=== PATIENT | male | born 1985 | race Caucasian/White ===

== ENCOUNTER → 2023-06-22 15:12 | Outpatient (CLI) | payer OTHER, SELFPAY ==
--- NOTE | 2023-06-22 15:15 | DI.RAD.S_ITS ---
PROCEDURE: XR HAND LT MIN 3V INDICATIONS: left hand pain, tender over metacarpals 3-4 TECHNIQUE: 3 views of the hand(s) acquired. COMPARISON: None. FINDINGS: Bones: There is a mildly angulated fracture of the 5th metacarpal neck of uncertain chronicity. Soft tissues: No suspicious soft tissue calcifications. IMPRESSION: 5th metacarpal neck fracture of uncertain chronicity. Dictated by: Hitesh Rubio M.D. on 06/22/2023 at 16:01 Approved by: Hitesh Rubio M.D. on 06/22/2023 at 16:02
--- NOTE | 2023-06-22 15:15 | DI.RAD.S_ITS ---
PROCEDURE: XR SHOULDER RT MIN 2V INDICATIONS: right shoulder pain, anterior point tenderness TECHNIQUE: 3 views of the shoulder were acquired. COMPARISON: None. FINDINGS: Bones: No fractures or dislocations. No suspicious bony lesions. Visualized ribs appear intact. Soft tissues: No suspicious soft tissue calcifications. IMPRESSION: No acute fracture. No osseous lesion. If symptoms and/or clinical suspicion for pathology persist, further assessment with repeat, or advanced imaging (e.g., CT, MRI, or bone scan) may be helpful for further assessment. Dictated by: Hitesh Rubio M.D. on 06/22/2023 at 16:01 Approved by: Hitesh Rubio M.D. on 06/22/2023 at 16:01
== END ==
LOC: RAD 15:14
PROVIDERS: Referring Provider Physician Assistant; Visit Provider Physician Assistant
DX: S62.337A Displaced fracture of neck of fifth metacarpal bone, left hand, initial encounter for closed fracture (principal); M25.511 Pain in right shoulder; M79.642 Pain in left hand
CPT/HCPCS: 73030; 73130

== ENCOUNTER → 2023-07-23 17:19 | Outpatient (CLI) | payer OTHER, SELFPAY ==
--- NOTE | 2023-07-23 | DI.MRI.S_ITS ---
PROCEDURE: MR SHOULDER RT WO CON INDICATIONS: Impingement syndrome of right shoulder TECHNIQUE: Noncontrast oblique coronal T2 fast spin echo with fat saturation, oblique sagittal T1 spin echo and T2 fast spin echo with fat saturation, axial T1 spin echo and T2 fast spin echo with fat saturation through the shoulder. COMPARISON: None. FINDINGS: Image quality: Excellent. Rotator cuff: Low-grade articular and bursal surface partial thickness tear involving distal supraspinatus at its insertion on the humeral head is seen extending to musculotendinous junction. Distal infraspinatus and subscapularis tendinosis is seen. No full-thickness rotator cuff tendon rupture. Sagittal images demonstrate no significant rotator cuff muscle atrophy. Bones and bursae: No bone marrow contusions or fractures. [id number] acromioclavicular joint osteoarthritic changes are seen with joint space narrowing and downward osteophyte formation depressing the musculotendinous junction of supraspinatus. The acromion demonstrates conventional anatomy, without an os acromiale. Small amount of joint effusion and subacromial subdeltoid bursal fluid is seen, no gross loose bodies. Capsule and soft tissues: There is fraying of superior anterior labrum with T2 hyperintense signal at 1-2 o'clock position consistent with superior anterior labral tear. The long head of the biceps tendon demonstrates normal location and morphology. The rotator interval appears normal, without fibrosis. The coracohumeral ligament is normal in thickness. IMPRESSION: 1. Low-grade articular and bursal surface partial thickness tear involving distal supraspinatus extending to musculotendinous junction. Distal infraspinatus and subscapularis tendinosis. No full-thickness rotator cuff tendon rupture. 2. [id number] acromioclavicular joint osteoarthritis. No fracture or dislocation. Small joint effusion and subacromial subdeltoid bursal fluid, no gross loose bodies. 3. Suggestion of superior anterior labral tear at 1 to 2 o'clock position. Dictated by: Alejandro Cho M.D. on 07/26/2023 at 10:40 Approved by: Alejandro Cho M.D. on 07/26/2023 at 10:43
== END ==
PROVIDERS: PCP Family Medicine; Referring Provider Orthopaedic Surgery; Visit Provider Orthopaedic Surgery
DX: M75.111 Incomplete rotator cuff tear or rupture of right shoulder, not specified as traumatic (principal); M75.41 Impingement syndrome of right shoulder; M19.011 Primary osteoarthritis, right shoulder; M25.411 Effusion, right shoulder
CPT/HCPCS: 73221

== ENCOUNTER 2023-08-08 13:16 | Emergency (ER) | payer OTHER, SELFPAY ==
[2023-08-08] VITALS (17 sets, daily range): BP systolic 131–162; BP diastolic 62–102; PULSE 73–175; RESP 16–18; TEMP 37.1; O2SAT 94–100; BMI 24.3
--- NOTE | 2023-08-08 14:29 | ED.GENADULT ---
HPI - General Adult <Arielle Espino MD - Last Filed: 08/09/23 07:24> General Chief complaint: Extremity Injury, Upper Stated complaint: right shoulder pain had MRI recently Time Seen by Provider: 08/08/23 14:29 Source: patient Mode of arrival: Ambulatory History of Present Illness HPI narrative: 37-year-old gentleman with increasing right shoulder pain now with right arm paresthesia and weakness to the point he can not lift it up, can not hold a piece of paper or or any type of utensil in his right hand. Now having pain that is radiating down the thoracic spine and causing significant tenderness in the distal trapezius muscle on the right side. 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 He is currently seeing ortho, has had a recent shoulder MRI that did show a labral tear and impingement syndrome but over the last number of days the weakness down the arm paresthesia and now pain and spasm into the distal right trapezius muscle has significantly increased. He notes that he has not been able to sleep he has had significant amount of unintentional weight loss and he is becoming more concerned. Incidentally also tested positive for COVID this morning. He has minimal symptoms from the COVID, minor cough, no headache no nausea or vomiting, low-grade fever, tachycardia. Related Data Home Medications Medication Instructions Recorded Confirmed dextroamphetamine-amphetamine 20 1 tab PO DAILY 06/22/23 06/22/23 mg tablet Previous Rx's Medication Instructions Recorded lamotrigine 25 mg tablet See Rx Instructions PO .COMPLEX 02/23/18 #60 tabs sertraline 100 mg tablet (Zoloft) 100 mg PO DAILY #30 tabs 03/28/18 ranitidine HCl 300 mg tablet 300 mg PO BEDTIME #30 tabs 09/20/18 dexamethasone 1.5 mg (21 tabs) See Rx Instructions .Route 08/08/23 tablets in a dose pack .COMPLEX #21 ea meloxicam 7.5 mg tablet 7.5 mg PO BID PRN pain #10 tabs 08/08/23 Allergies Allergy/AdvReac Type Severity Reaction Status Date / Time amoxicillin Allergy Severe throat Verified 08/08/23 13:22 swelling Review of Systems <Arielle Espino MD - Last Filed: 08/09/23 07:24> Review of Systems Narrative: Pertinent positive and negative findings as per HPI Patient History <Arielle Espino MD - Last Filed: 08/09/23 07:24> Medical History (Updated 08/08/23 @ 19:17 by Hazel Preciado DO) Anxiety (2009) Depression (2011) PTSD (post-traumatic stress disorder) (2008) Scoliosis (1987) Substance abuse (2008) Gastric ulcer (2011) Mild acid reflux (2011) Surgical History Hx of undescended testicle (Unknown) Family History Grandfather Cancer Grandmother Cancer Grandfather Hypertension Dementia Grandmother Dementia Father Healthy adult Mother Healthy adult Social History Smoking Status: Former smoker Tobacco: How many years used: 10 alcohol intake: former (Occasional ) Smoking Status: Former smoker alcohol intake frequency: 3 or more drinks per day Substance Use Type: does not use Exam <Arielle Espino MD - Last Filed: 08/09/23 07:24> Initial Vital Signs Initial Vital Signs: Vital Signs Temperature 98.8 F 08/08/23 13:22 Pulse Rate 142 H 08/08/23 13:22 Respiratory Rate 18 08/08/23 13:22 Blood Pressure 147/102 H 08/08/23 13:22 Pulse Oximetry 96 08/08/23 13:22 Oxygen Delivery Method Room Air 08/08/23 13:22 General: Appears uncomfortable, holding his head rigidly controlled due to neck pain, Able to give a complete and coherent history. Well-nourished well-developed HEENT: Moist mucous membranes, normal sclera with reactive pupils, Neck: No cervical adenopathy. Significant tenderness along the right cervical spine with minimal axial loading and radicular pain and paresthesia are increased in the right arm with neck manipulation. Cervical spine movement also completely reproduces the posterior trapezius muscle spasm and tenderness on the right side. Respiratory: Lungs are clear to auscultation, no wheezing no rales no rhonchi. Full and symmetrical air movement Cardiac: Tachycardic but regular Abdomen: Soft, nontender, good bowel tones, no flank pain Skin: Warm and dry, no rashes Neurologic: Significant difficulty lifting and moving his right upper extremity. Stocking-like distribution paresthesia on the right side Extremities: No trauma, well perfused Psych: Cooperative, appropriate insight and affect <Hazel Preciado DO - Last Filed: 08/08/23 23:31> Initial Vital Signs Initial Vital Signs: Vital Signs Temperature 98.8 F 08/08/23 13:22 Pulse Rate 142 H 08/08/23 13:22 Respiratory Rate 18 08/08/23 13:22 Blood Pressure 147/102 H 08/08/23 13:22 Pulse Oximetry 96 08/08/23 13:22 Oxygen Delivery Method Room Air 08/08/23 13:22 Course <Arielle Espino MD - Last Filed: 08/09/23 07:24> Orders Ordered: Discontinued Medications Dexamethasone (Dexamethasone 10 Mg/Ml Vial) 10 mg IV NOW ONE Stop: 08/08/23 15:39 Last Admin: 08/08/23 15:55 Dose: 10 mg Documented By: RLS Sodium Chloride (Normal Saline 0.9%) 1,000 mls @ 1,000 mls/hr IV BOLUS ONE Stop: 08/08/23 15:29 Last Infusion: 08/08/23 15:58 Dose: Infused Documented By: Admin: 08/08/23 14:45 Dose: 1,000 mls/hr Documented By: TC Sodium Chloride (Normal Saline 0.9%) 1,000 mls @ 1,000 mls/hr IV BOLUS ONE Stop: 08/08/23 20:05 Ketorolac Tromethamine (Ketorolac 30 Mg/Ml Vial) 15 mg IV NOW ONE Stop: 08/08/23 14:31 Last Admin: 08/08/23 14:53 Dose: 15 mg Documented By: TC Lorazepam (Lorazepam 2 Mg/Ml Inj) 2 mg IV NOW ONE Stop: 08/08/23 18:47 Last Admin: 08/08/23 19:20 Dose: 2 mg Documented By: TC Vital Signs Vital signs: Vital Signs - 8 hr 08/08/23 16:00 08/08/23 16:00 08/08/23 16:57 Pulse Rate 140 H 175 H Respiratory Rate Blood Pressure 158/67 H Pulse Oximetry 98 Oxygen Delivery Method 08/08/23 16:58 08/08/23 16:58 08/08/23 17:00 Pulse Rate 127 H Respiratory Rate Blood Pressure 136/62 142/65 H Pulse Oximetry 96 Oxygen Delivery Method 08/08/23 17:00 08/08/23 17:30 08/08/23 17:30 Pulse Rate 126 H 132 H Respiratory Rate Blood Pressure 139/72 Pulse Oximetry 95 96 Oxygen Delivery Method 08/08/23 18:00 08/08/23 18:17 08/08/23 18:17 Pulse Rate 128 H 119 H Respiratory Rate Blood Pressure 136/73 Pulse Oximetry 94 95 Oxygen Delivery Method 08/08/23 18:30 08/08/23 18:30 08/08/23 19:00 Pulse Rate 123 H Respiratory Rate Blood Pressure 135/74 138/83 Pulse Oximetry 95 Oxygen Delivery Method 08/08/23 19:00 08/08/23 19:46 Pulse Rate 130 H 73 Respiratory Rate 16 Blood Pressure 131/73 Pulse Oximetry 95 95 Oxygen Delivery Method Room Air <Hazel Preciado, - Last Filed: 08/08/23 23:31> Orders Ordered: Discontinued Medications Dexamethasone (Dexamethasone 10 Mg/Ml Vial) 10 mg IV NOW ONE Stop: 08/08/23 15:39 Last Admin: 08/08/23 15:55 Dose: 10 mg Documented By: RLS Sodium Chloride (Normal Saline 0.9%) 1,000 mls @ 1,000 mls/hr IV BOLUS ONE Stop: 08/08/23 15:29 Last Infusion: 08/08/23 15:58 Dose: Infused Documented By: Admin: 08/08/23 14:45 Dose: 1,000 mls/hr Documented By: TC Sodium Chloride (Normal Saline 0.9%) 1,000 mls @ 1,000 mls/hr IV BOLUS ONE Stop: 08/08/23 20:05 Ketorolac Tromethamine (Ketorolac 30 Mg/Ml Vial) 15 mg IV NOW ONE Stop: 08/08/23 14:31 Last Admin: 08/08/23 14:53 Dose: 15 mg Documented By: TC Lorazepam (Lorazepam 2 Mg/Ml Inj) 2 mg IV NOW ONE Stop: 08/08/23 18:47 Last Admin: 08/08/23 19:20 Dose: 2 mg Documented By: TC Vital Signs Vital signs: Vital Signs - 8 hr 08/08/23 16:00 08/08/23 16:00 08/08/23 16:57 Pulse Rate 140 H 175 H Respiratory Rate Blood Pressure 158/67 H Pulse Oximetry 98 Oxygen Delivery Method 08/08/23 16:58 08/08/23 16:58 08/08/23 17:00 Pulse Rate 127 H Respiratory Rate Blood Pressure 136/62 142/65 H Pulse Oximetry 96 Oxygen Delivery Method 08/08/23 17:00 08/08/23 17:30 08/08/23 17:30 Pulse Rate 126 H 132 H Respiratory Rate Blood Pressure 139/72 Pulse Oximetry 95 96 Oxygen Delivery Method 08/08/23 18:00 08/08/23 18:17 08/08/23 18:17 Pulse Rate 128 H 119 H Respiratory Rate Blood Pressure 136/73 Pulse Oximetry 94 95 Oxygen Delivery Method 08/08/23 18:30 08/08/23 18:30 08/08/23 19:00 Pulse Rate 123 H Respiratory Rate Blood Pressure 135/74 138/83 Pulse Oximetry 95 Oxygen Delivery Method 08/08/23 19:00 08/08/23 19:46 Pulse Rate 130 H 73 Respiratory Rate 16 Blood Pressure 131/73 Pulse Oximetry 95 95 Oxygen Delivery Method Room Air Medical Decision Making <Arielle Espino MD - Last Filed: 08/09/23 07:24> Lab Data 08/08/23 14:40 08/08/23 14:40 Labs: Lab Results 08/08/23 Range/Units 14:40 WBC 7.6 (4.5-11.0) X10^3/uL RBC 4.85 (4.5-5.9) X10^6/uL Hgb 15.0 (13.5-17.5) g/dL Hct 44.1 (41-53) % MCV 91.0 (80-100) fL MCH 31.0 (26-34) PG MCHC 34.0 (30-36) % RDW 16.8 H (11.6-14.8) % Plt Count 312 (150-400) X10^3/uL Neut % (Auto) 80.6 H (50-75) % Lymph % (Auto) 14.4 L (25-40) % [place] % (Auto) 4.1 (3-14) % Eos % (Auto) 0.5 L (2-4) % Baso % (Auto) 0.4 (0-2) % Neut # (Auto) 6100 (6559-3264) /uL Lymph # (Auto) 1100 (5553-3928) /uL [place] # (Auto) 300 (0-900) /uL Eos # (Auto) 0 (0-450) /uL Baso # (Auto) 0 (0-100) /uL Sodium 142 (137-145) mmol/L Potassium 4.1 (3.4-5.1) mmol/L Chloride 101 (98-107) mmol/L Carbon Dioxide 25 (22-32) mmol/L BUN 14 (9-20) mg/dL Creatinine 0.82 (0.66-1.25) mg/dL Estimated GFR > 60 (>60) mL/min BUN/Creatinine Ratio 17.1 (6-22) Glucose 95 (70-100) mg/dL Calcium 9.3 (8.4-10.2) mg/dL Total Bilirubin 1.2 (0.2-1.3) mg/dL AST 80 H (17-59) IU/L ALT 71 H (<50) IU/L Alkaline Phosphatase 77 (38-126) U/L Total Protein 8.1 (6.3-8.2) g/dL Albumin 4.8 (3.5-5.0) g/dL Globulin 3.3 (1.7-4.1) g/dL Albumin/Globulin Ratio 1.5 (1.0-2.8) Imaging Data MRI cervical spine: Radiologist's Impression: PROCEDURE: MR CERVICAL SPINE WO/W CON INDICATIONS: Acute right arm weakness and paresthesia TECHNIQUE: Noncontrast sagittal T1 spin echo and T2 fast spin echo, sagittal STIR, foraminal oblique sagittal T2 fast spin echo, axial gradient echo or T2 fast spin echo through the cervical spine. After the administration of contrast, axial and sagittal T1 spin echo with fat saturation through the cervical spine. COMPARISON: [facility], CR, XR CHEST 1V, 08/08/2023, 14:36. FINDINGS: Image quality: This examination is limited by involuntary motion artifact. Alignment and curvature: There is overall straightening of the normal cervical lordosis. No focal AP alignment abnormality is seen. Marrow: Marrow is normal in overall signal, without suspicious enhancement. Spinal cord: Visualized spinal cord has normal size and signal. No cerebellar tonsillar herniation. No abnormal intramedullary enhancement. Paraspinous soft tissues: No paravertebral masses or suspicious enhancement. C2-3: No significant abnormality is seen. C3-4: The disc height and disk signal are well-preserved. Mild to moderate disc osteophyte complex is seen, which is eccentric to the left. There is at least moderate bilateral neural foraminal narrowing, left worse than right. No significant central canal narrowing is seen. C4-5: The disc height is well preserved. A mild degree of generalized disc osteophyte complex is seen. Mild bilateral neural foraminal narrowing is seen. Mild central canal narrowing is seen. C5-6: Moderate loss of disc height is seen. Loss of disc signal is seen. Moderate disc osteophyte complex is seen, with a central/right disc extrusion, which continues into the right foraminal region, as on series 3, image 7. The extruded disc material measures 1 cm craniocaudal. There is moderate to severe right-sided and moderate left-sided neural foraminal narrowing. Mild central canal narrowing is seen. There is associated mass effect upon the ventral spinal cord. C6-7: Moderate loss of disc height is seen. Loss of disc signal is seen. Moderate disc osteophyte complex is seen, with a central/right disc protrusion, which continues into the right neural foramen. Mild facet joint hypertrophy is seen. Moderate bilateral neural foraminal narrowing can be seen, right worse than left. Mild to moderate central canal narrowing is seen. There is associated mass effect upon the ventral spinal cord. C7-T1: Normal appearance. IMPRESSION: At C5-C6 level, there is a right-sided disc extrusion seen, with moderate to severe right-sided neural foraminal narrowing. There is mass effect seen upon the ventral spinal cord. At the C6-C7 level, there is a right-sided disc protrusion present. Moderate bilateral neural foraminal narrowing can be seen at this level. Mild mass effect is seen upon the ventral spinal cord at this level. Straightening of the normal cervical lordosis is seen, which is commonly observed in patients with muscular spasm. No abnormal enhancement is seen. Dictated by: Slim Sarmiento M.D. on 08/08/2023 at 16:40 07/23/23 Shoulder MRI: Radiologist's Impression: PROCEDURE: MR SHOULDER RT WO CON INDICATIONS: Impingement syndrome of right shoulder TECHNIQUE: Noncontrast oblique coronal T2 fast spin echo with fat saturation, oblique sagittal T1 spin echo and T2 fast spin echo with fat saturation, axial T1 spin echo and T2 fast spin echo with fat saturation through the shoulder. COMPARISON: None. FINDINGS: Image quality: Excellent. Rotator cuff: Low-grade articular and bursal surface partial thickness tear involving distal supraspinatus at its insertion on the humeral head is seen extending to musculotendinous junction. Distal infraspinatus and subscapularis tendinosis is seen. No full-thickness rotator cuff tendon rupture. Sagittal images demonstrate no significant rotator cuff muscle atrophy. Bones and bursae: No bone marrow contusions or fractures. [id number] acromioclavicular joint osteoarthritic changes are seen with joint space narrowing and downward osteophyte formation depressing the musculotendinous junction of supraspinatus. The acromion demonstrates conventional anatomy, without an os acromiale. Small amount of joint effusion and subacromial subdeltoid bursal fluid is seen, no gross loose bodies. Capsule and soft tissues: There is fraying of superior anterior labrum with T2 hyperintense signal at 1-2 o'clock position consistent with superior anterior labral tear. The long head of the biceps tendon demonstrates normal location and morphology. The rotator interval appears normal, without fibrosis. The coracohumeral ligament is normal in thickness. IMPRESSION: 1. Low-grade articular and bursal surface partial thickness tear involving distal supraspinatus extending to musculotendinous junction. Distal infraspinatus and subscapularis tendinosis. No full-thickness rotator cuff tendon rupture. 2. [id number] acromioclavicular joint osteoarthritis. No fracture or dislocation. Small joint effusion and subacromial subdeltoid bursal fluid, no gross loose bodies. 3. Suggestion of superior anterior labral tear at 1 to 2 o'clock position. Dictated by: Alejandro Cho M.D. on 07/26/2023 at 10:40 MDM Narrative Medical decision making narrative: CC: Neck pain, right arm weakness, incidental positive COVID test this morning Complicating co-morbidities: Concurrent L&I claim for right shoulder pain Data collected from: patient Medical records reviewed: Right shoulder MRI from July 23, 2023 shows IMPRESSION: 1. Low-grade articular and bursal surface partial thickness tear involving distal supraspinatus extending to musculotendinous junction. Distal infraspinatus and subscapularis tendinosis. No full-thickness rotator cuff tendon rupture. 2. [id number] acromioclavicular joint osteoarthritis. No fracture or dislocation. Small joint effusion and subacromial subdeltoid bursal fluid, no gross loose bodies. 3. Suggestion of superior anterior labral tear at 1 to 2 o'clock position. Dictated by: Alejandro Cho M.D. on 07/26/2023 at 10:40 Differential considered: Pain secondary to shoulder issues as above, radicular pain, thoracic mass Exam documented above, pertinent findings include: Patient is tachycardic, significant neck pain and reproducible radicular findings down the right side. Lungs are clear. Does not have any muscle wasting in his hand or forearm. Right extremity is weak throughout the entire extremity including abduction, internal and external rotation Lab Test results independently reviewed as above. Pertinent findings: CBC is unremarkable Chemistries are reassuring Chest x-ray does not show any acute findings Imaging studies independently reviewed: Due to the progressive weakness and paresthesia down the right arm now with paresthesia extending into the trapezius on the right side MRI of the cervical spine is obtained MRI C spine: At C5-C6 level, there is a right-sided disc extrusion seen, with moderate to severe ight-sided neural foraminal narrowing. There is mass effect seen upon the ventral spinal cord. At the C6-C7 level, there is a right-sided disc protrusion present. Moderate bilateral neural foraminal narrowing can be seen at this level. Mild mass effect is seen upon the ventral spinal cord at this level. Consultations:6:45 Talked with [facility] and C-spine images have been pushed, we will await ortho review for help with disposition Treatments: IV Toradol, fluids. Heart rate was not responsive to fluids, pain was not responsive to Toradol. IV dexamethasone given Re-evaluations: Patient was pain was slightly relieved with the IV dexamethasone. They had a long discussion regarding pain control. He has a history of opioid use disorders and has been trying to avoid opiates and in doing so has been increasing his alcohol use and drinking up to a 1/2 5th of vodka a day. I suspect that alcohol withdrawal is contributing to his tachycardia. Will use IV Ativan and see if this is effective in helping his heart rate and perhaps decreasing some of the pain he is experiencing into the right arm and shoulder. Discussion: 37-year-old gentleman with progressive right arm and shoulder pain. 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 Pain continues to be an issue as well. C-spine MRI shows moderate to severe foraminal narrowing on the right side with mass effect at both the C5-6 and C6-7 levels. Findings reviewed with the patient. He understands we are waiting for neurosurgical consultation regarding the images that have been sent to [facility]. We also discussed his prior opioid use disorder and reasons for wanting to avoid opioids. Turns out he is drinking quite a bit and that may be contributing to the persistent tachycardia that we are seeing. Going to give him IV Ativan. He understands the need to stop and feels that he will be able to do so. He is very open about this discussion. Care is turned over to Dr. Preciado <Hazel Preciado, DO - Last Filed: 08/08/23 23:31> Lab Data Labs: Lab Results 08/08/23 Range/Units 14:40 WBC 7.6 (4.5-11.0) X10^3/uL RBC 4.85 (4.5-5.9) X10^6/uL Hgb 15.0 (13.5-17.5) g/dL Hct 44.1 (41-53) % MCV 91.0 (80-100) fL MCH 31.0 (26-34) PG MCHC 34.0 (30-36) % RDW 16.8 H (11.6-14.8) % Plt Count 312 (150-400) X10^3/uL Neut % (Auto) 80.6 H (50-75) % Lymph % (Auto) 14.4 L (25-40) % [place] % (Auto) 4.1 (3-14) % Eos % (Auto) 0.5 L (2-4) % Baso % (Auto) 0.4 (0-2) % Neut # (Auto) 6100 (2513-2469) /uL Lymph # (Auto) 1100 (6296-8169) /uL [place] # (Auto) 300 (0-900) /uL Eos # (Auto) 0 (0-450) /uL Baso # (Auto) 0 (0-100) /uL Sodium 142 (137-145) mmol/L Potassium 4.1 (3.4-5.1) mmol/L Chloride 101 (98-107) mmol/L Carbon Dioxide 25 (22-32) mmol/L BUN 14 (9-20) mg/dL Creatinine 0.82 (0.66-1.25) mg/dL Estimated GFR > 60 (>60) mL/min BUN/Creatinine Ratio 17.1 (6-22) Glucose 95 (70-100) mg/dL Calcium 9.3 (8.4-10.2) mg/dL Total Bilirubin 1.2 (0.2-1.3) mg/dL AST 80 H (17-59) IU/L ALT 71 H (<50) IU/L Alkaline Phosphatase 77 (38-126) U/L Total Protein 8.1 (6.3-8.2) g/dL Albumin 4.8 (3.5-5.0) g/dL Globulin 3.3 (1.7-4.1) g/dL Albumin/Globulin Ratio 1.5 (1.0-2.8) MDM Narrative Medical decision making narrative: CC: Neck pain, right arm weakness, incidental positive COVID test this morning Complicating co-morbidities: Concurrent L&I claim for right shoulder pain Data collected from: patient Medical records reviewed: Right shoulder MRI from July 23, 2023 shows IMPRESSION: 1. Low-grade articular and bursal surface partial thickness tear involving distal supraspinatus extending to musculotendinous junction. Distal infraspinatus and subscapularis tendinosis. No full-thickness rotator cuff tendon rupture. 2. Ilmj-cz-[id number] acromioclavicular joint osteoarthritis. No fracture or dislocation. Small joint effusion and subacromial subdeltoid bursal fluid, no gross loose bodies. 3. Suggestion of superior anterior labral tear at 1 to 2 o'clock position. Dictated by: Alejandro Cho M.D. on 07/26/2023 at 10:40 Differential considered: Pain secondary to shoulder issues as above, radicular pain, thoracic mass Exam documented above, pertinent findings include: Patient is tachycardic, significant neck pain and reproducible radicular findings down the right side. Lungs are clear. Does not have any muscle wasting in his hand or forearm. Right extremity is weak throughout the entire extremity including abduction, internal and external rotation Lab Test results independently reviewed as above. Pertinent findings: CBC is unremarkable Chemistries are reassuring Chest x-ray does not show any acute findings Independently reviewed EKG: Imaging studies independently reviewed: Due to the progressive weakness and paresthesia down the right arm now with paresthesia extending into the trapezius on the right side MRI of the cervical spine is obtained Consultations: Treatments: IV Toradol, fluids. Heart rate was not responsive to fluids, pain was not responsive to Toradol. IV dexamethasone given Re-evaluations: Discussion: 08/08/23 Mank: Patient signed out to myself by Dr. Espino. Patient MRs reported reviewed shows some ventral compression at C5-6 7 from disc protrusion. Patient does have some neurologic changes. Images were pushed to [facility] for consultation. Reviewed patient's labs including CBC, CMP which showed no major changes patient is COVID positive today has had recent exposure. Chest x-ray is negative. Patient was seen and evaluated by myself. Dr. Khan will follow up with clinic on Wednesday. [facility] will reach out. Can transfer if weakness too great. Patient prefers clinic. On examination patient states he is moving much better after pain medications including Toradol and dexamethasone and can lift his arms he has a little bit decreased dialysis tech on the right, has some slight drift. Otherwise has fairly good strength right comparison to left does have some mild paresthesias but has sensation bilaterally. Patient was offered transfer versus clinic he elects for clinic we will go ahead and give him dexamethasone, NSAIDs for pain management and [facility] will reach out in the next 1-2 days to set up clinic. Patient's mom's at bedside for this conversation as well. Discharge Plan Departure Patient Disposition: Home Clinical Impression: Protruded cervical disc Activity Restrictions/Additional Instructions: Follow-up with [facility], they should be calling you in the next 24-48 hours to set up a follow up appointment with Dr. Romero. Please make sure you have a voicemail available and call back if you miss their call. You may take Tylenol up to a 1000 mg every 6 hours, you can take meloxicam 1 tablet every 12 hours with this medication. Do not take NSAIDs such as ibuprofen, Aleve or naproxen with this medication. You can take dexamethasone as prescribed. Prescription sent to [facility] in [place]. Please return for significant new weakness, loss of sensation inability to lift or move your arm, fevers or other new or concerning changes. Prescriptions: New dexamethasone 1.5 mg (21 tabs) tablets,dose pack See Rx Instructions .ROUTE .COMPLEX Qty: 21 0RF Rx Instructions: Take 6 tablets p.o. x1 day, then 5 tablets p.o. x1 day, then 4 tablets p.o. x1 day, then 3 tablets p.o. x1 day, then 2 tablets p.o. x1 day, then 1 tablet p.o. x1 day meloxicam 7.5 mg tablet 7.5 mg PO BID PRN (Reason: pain) Qty: 10 0RF No Action lamotrigine 25 mg tablet See Rx Instructions PO .COMPLEX Qty: 60 2RF Dose Instruction: 25 mg q hs x 2 weeks then 25 mg po BID PO ; Rx Instructions: 25 mg q hs x 2 weeks then 25 mg po BID PO ; dextroamphetamine-amphetamine 20 mg tablet 1 tab PO DAILY sertraline [Zoloft] 100 mg tablet 100 mg PO DAILY Qty: 30 3RF ranitidine HCl 300 mg tablet 300 mg PO BEDTIME Qty: 30 0RF Referrals: Nicki Dove MD [Primary Care Provider] - Stand Alone Forms: Patient Portal/API ED Sign-out <Arielle Espino MD - Last Filed: 08/09/23 07:24> Cosign ED Attending Radha Attestation: I was immediately available in the department for consultation throughout this patient's visit. Arielle Espino MD
--- NOTE | 2023-08-08 14:30 | DI.RAD.S_ITS ---
PROCEDURE: XR CHEST 1V INDICATIONS: Right post lower lung field pain TECHNIQUE: One view of the chest was acquired. COMPARISON: None. FINDINGS: Surgical changes and devices: None. Lungs and pleura: On this semiupright portable chest examination, no large pneumothorax or large pleural effusions are seen. No focal infiltrates are seen. Mediastinum: Mediastinal contours appear normal. Heart size is normal. Bones and chest wall: No suspicious bony lesions. Overlying soft tissues appear unremarkable. IMPRESSION: No acute cardiopulmonary abnormality is seen. No focal infiltrates are seen. No pneumothorax is seen to the limits of this semiupright study. Dictated by: Slim Sarmiento M.D. on 08/08/2023 at 15:01 Approved by: Slim Sarmiento M.D. on 08/08/2023 at 15:01
[2023-08-08] MEDS: SODIUM CHLORIDE 0.9% 1,000 ML 1000 ML IV (14:45)
[2023-08-08 14:48] LABS: Add Manual Diff / Slide Review NO; Basophils Absolute Auto 0 /uL (0-100); Basophils Percent Auto 0.4 % (0-2); Eosinophils Absolute Auto 0 /uL (0-450); Eosinophils Percent Auto 0.5 % (2-4); Hematocrit 44.1 % (41-53); Lymphocytes Absolute Auto 1100 /uL (1100-4500); Lymphocytes Percent Auto 14.4 % (25-40); Monocytes Absolute Auto 300 /uL (0-900); Monocytes Percent Auto 4.1 % (3-14); Neutrophils Absolute Auto 6100 /uL (1500-7000); Neutrophils Percent Auto 80.6 % (50-75); Platelet Count 312 X10^3/uL (150-400); Red Blood Cell Count 4.85 X10^6/uL (4.5-5.9); Red Cell Distribution Width 16.8 % (11.6-14.8); White Blood Cell Count 7.6 X10^3/uL (4.5-11.0)
[2023-08-08] MEDS: KETOROLAC 30 MG/ML VIAL 15 MG IV (14:53)
[2023-08-08 15:01] LABS: Alanine Aminotransferase 71 IU/L (<50); Albumin 4.8 g/dL (3.5-5.0); Albumin Globulin Ratio 1.5 (1.0-2.8); Alkaline Phosphatase 77 U/L (38-126); Aspartate Aminotransferase 80 IU/L (17-59); BUN Creatinine Ratio 17.1 (6-22); Bilirubin Total 1.2 mg/dL (0.2-1.3); Blood Urea Nitrogen 14 mg/dL (9-20); Calcium 9.3 mg/dL (8.4-10.2); Carbon Dioxide 25 mmol/L (22-32); Chloride 101 mmol/L (98-107); Estimated Glomerular Filt Rate > 60 mL/min (>60); Globulin 3.3 g/dL (1.7-4.1); Glucose 95 mg/dL (70-100); HEMOLYSIS < 15 (0-50); Potassium 4.1 mmol/L (3.4-5.1); Sodium 142 mmol/L (137-145); Total Protein 8.1 g/dL (6.3-8.2)
--- NOTE | 2023-08-08 15:38 | DI.MRI.S_ITS ---
PROCEDURE: MR CERVICAL SPINE WO/W CON INDICATIONS: Acute right arm weakness and paresthesia TECHNIQUE: Noncontrast sagittal T1 spin echo and T2 fast spin echo, sagittal STIR, foraminal oblique sagittal T2 fast spin echo, axial gradient echo or T2 fast spin echo through the cervical spine. After the administration of contrast, axial and sagittal T1 spin echo with fat saturation through the cervical spine. COMPARISON: [facility], CR, XR CHEST 1V, 08/08/2023, 14:36. FINDINGS: Image quality: This examination is limited by involuntary motion artifact. Alignment and curvature: There is overall straightening of the normal cervical lordosis. No focal AP alignment abnormality is seen. Marrow: Marrow is normal in overall signal, without suspicious enhancement. Spinal cord: Visualized spinal cord has normal size and signal. No cerebellar tonsillar herniation. No abnormal intramedullary enhancement. Paraspinous soft tissues: No paravertebral masses or suspicious enhancement. C2-3: No significant abnormality is seen. C3-4: The disc height and disk signal are well-preserved. Mild to moderate disc osteophyte complex is seen, which is eccentric to the left. There is at least moderate bilateral neural foraminal narrowing, left worse than right. No significant central canal narrowing is seen. C4-5: The disc height is well preserved. A mild degree of generalized disc osteophyte complex is seen. Mild bilateral neural foraminal narrowing is seen. Mild central canal narrowing is seen. C5-6: Moderate loss of disc height is seen. Loss of disc signal is seen. Moderate disc osteophyte complex is seen, with a central/right disc extrusion, which continues into the right foraminal region, as on series 3, image 7. The extruded disc material measures 1 cm craniocaudal. There is moderate to severe right-sided and moderate left-sided neural foraminal narrowing. Mild central canal narrowing is seen. There is associated mass effect upon the ventral spinal cord. C6-7: Moderate loss of disc height is seen. Loss of disc signal is seen. Moderate disc osteophyte complex is seen, with a central/right disc protrusion, which continues into the right neural foramen. Mild facet joint hypertrophy is seen. Moderate bilateral neural foraminal narrowing can be seen, right worse than left. Mild to moderate central canal narrowing is seen. There is associated mass effect upon the ventral spinal cord. C7-T1: Normal appearance. IMPRESSION: At C5-C6 level, there is a right-sided disc extrusion seen, with moderate to severe right-sided neural foraminal narrowing. There is mass effect seen upon the ventral spinal cord. At the C6-C7 level, there is a right-sided disc protrusion present. Moderate bilateral neural foraminal narrowing can be seen at this level. Mild mass effect is seen upon the ventral spinal cord at this level. Straightening of the normal cervical lordosis is seen, which is commonly observed in patients with muscular spasm. No abnormal enhancement is seen. Dictated by: Slim Sarmiento M.D. on 08/08/2023 at 16:40 Approved by: Slim Sarmiento M.D. on 08/08/2023 at 16:45
[2023-08-08] MEDS: DEXAMETHASONE 10 MG/ML VIAL IV (15:55)
[2023-08-08] MEDS: LORazepam 2 MG/ML INJ IV (19:20)
--- NOTE | 2023-08-09 10:45 | PC.NURSE ---
Mely called to change prescription d/t expense. Dr. Espino ok'd change to medrol dose pack w/ same instructions.
== END 2023-08-08 19:49 | disposition home or self-care (01) ==
PROVIDERS: Emergency Medicine; Emergency Provider Emergency Medicine; PCP Family Medicine
DX: M50.20 Other cervical disc displacement, unspecified cervical region (principal); R07.89 Other chest pain
CPT/HCPCS: 36415; 71045; 72156; 80053; 85025; 93005; 96361; 96374; 96375; 99284; A9579; J1100; J1885; J2060

== ENCOUNTER 2023-09-06 21:02 | Emergency (ER) | payer OTHER, SELFPAY ==
[2023-09-06 21:10] VITALS: BP 142/92; PULSE 126; RESP 17; TEMP 37.1; O2SAT 96; BMI 25.0
--- NOTE | 2023-09-06 21:43 | ED.EXTPRO ---
HPI - Extremity Problem General Chief complaint: Extremity Problem,Nontraumatic Stated complaint: Spinal inj/can't lift rt arm Time Seen by Provider: 09/06/23 21:14 Source: patient and family Mode of arrival: Ambulatory History of Present Illness HPI Narrative: 37-year-old male here for evaluation of right-sided shoulders/arm/neck discomfort. He has known issues with his right shoulder and also spinal stenosis. Has had an MRI. Has been seen by both Orthopedic surgery and also spinal surgery. Also seen his primary care doctor. Unfortunately the initial injury was an L and I claim. He states he has been having trouble with the L and I providers approving further studies and approval for surgery. He is here for increasing discomfort in his cervical spine and right shoulder. He states he is difficulty raising his right arm. This has been worsening over the past couple days. No new injury. Related Data Home Medications Medication Instructions Recorded Confirmed dextroamphetamine-amphetamine 20 1 tab PO DAILY 06/22/23 06/22/23 mg tablet Previous Rx's Medication Instructions Recorded lamotrigine 25 mg tablet See Rx Instructions PO .COMPLEX 02/23/18 #60 tabs sertraline 100 mg tablet (Zoloft) 100 mg PO DAILY #30 tabs 03/28/18 ranitidine HCl 300 mg tablet 300 mg PO BEDTIME #30 tabs 09/20/18 dexamethasone 1.5 mg (21 tabs) See Rx Instructions .Route 08/08/23 tablets in a dose pack .COMPLEX #21 ea meloxicam 7.5 mg tablet 7.5 mg PO BID PRN pain #10 tabs 08/08/23 cyclobenzaprine 10 mg tablet 10 mg PO TID PRN muscle spasm #21 09/06/23 tabs hydrocodone 5 mg-acetaminophen 325 1 tab PO Q4-6H PRN pain #10 tabs 09/06/23 mg tablet methylprednisolone 4 mg tablets in See Rx Instructions PO .COMPLEX 09/06/23 a dose pack (Medrol (Renaldo)) #21 ea Allergies Allergy/AdvReac Type Severity Reaction Status Date / Time amoxicillin Allergy Severe throat Verified 09/06/23 21:10 swelling Review of Systems Constitutional Constitutional: Reports system reviewed and no additional complaints, except as documented Musculoskeletal Musculoskeletal: Reports system reviewed and no additional complaints, except as documented Integumentary/Breasts Skin/Breast: Reports system reviewed and no additional complaints, except as documented Neurologic Neurologic: Reports system reviewed and no additional complaints, except as documented Patient History Medical History Anxiety (2009) Depression (2011) PTSD (post-traumatic stress disorder) (2008) Scoliosis (1987) Substance abuse (2008) Gastric ulcer (2011) Mild acid reflux (2011) Surgical History Hx of undescended testicle (Unknown) Family History Grandfather Cancer Grandmother Cancer Grandfather Hypertension Dementia Grandmother Dementia Father Healthy adult Mother Healthy adult Social History Smoking Status: Former smoker Tobacco: How many years used: 10 alcohol intake: former (Occasional ) Smoking Status: Former smoker alcohol intake frequency: 3 or more drinks per day Substance Use Type: does not use Exam Initial Vital Signs Initial Vital Signs: Vital Signs Temperature 98.8 F 09/06/23 21:10 Pulse Rate 126 H 09/06/23 21:10 Respiratory Rate 17 09/06/23 21:10 Blood Pressure 142/92 H 09/06/23 21:10 Pulse Oximetry 96 09/06/23 21:10 Oxygen Delivery Method Room Air 09/06/23 21:10 Const General: cooperative and No ill appearing HENMT Head: normal to inspection and normocephalic Resp Effort & Inspection: normal respiratory effort Cardio Rate: regular rate Extrem Other: Some discomfort to palpation of the right cervical region in the trapezius area. No gross deformities Course Orders Ordered: Discontinued Medications Hydrocodone Bitart/Acetaminophen (Hydrocodone/Acet 5/325 Prepack) 1 bottle MISC DIRECTED ONE Stop: 09/06/23 23:30 Last Admin: 09/06/23 23:47 Dose: 1 bottle Documented By: DARREL Cyclobenzaprine HCl (Cyclobenzaprine 10 Mg Tablet) 10 mg PO NOW ONE Stop: 09/06/23 22:35 Last Admin: 09/06/23 22:44 Dose: 10 mg Documented By: DARREL Cyclobenzaprine HCl (Cyclobenzaprine 10 Mg Prepack) 1 bottle MISC DIRECTED ONE Stop: 09/06/23 23:30 Last Admin: 09/06/23 23:47 Dose: 1 bottle Documented By: DARREL Hydromorphone HCl (Hydromorphone 1 Mg Inj) 1 mg IM NOW ONE Stop: 09/06/23 21:45 Last Admin: 09/06/23 21:50 Dose: 1 mg Documented By: DARREL Ketorolac Tromethamine (Ketorolac 30 Mg/Ml Vial) 30 mg IM NOW ONE Stop: 09/06/23 21:45 Last Admin: 09/06/23 21:50 Dose: 30 mg Documented By: DARREL Prednisone (Prednisone 20 Mg Tablet) 20 mg PO NOW ONE Stop: 09/06/23 21:45 Last Admin: 09/06/23 21:50 Dose: 20 mg Documented By: DARREL Vital Signs Vital signs: Vital Signs - 8 hr 09/06/23 21:10 09/06/23 23:33 09/06/23 23:54 Temperature 98.8 F Pulse Rate 126 H 114 H 105 H Respiratory Rate 17 16 Blood Pressure 142/92 H 154/85 H Pulse Oximetry 96 98 Oxygen Delivery Method Room Air Room Air MDM - Extremity (Nontraumatic) MDM Narrative Medical decision making narrative: Patient does have history and physical exam consistent with cervical radiculopathy. He has had an MRI which does show degenerative disc disease and herniated discs. There was no indication for repeat MRI today. No indication for further radiologic studies today. Unfortunately other than some symptom control not much more we can do out of the emergency department. Discussed that he contact his L and I provider for follow-up. Discharge home with medications. Discharge Plan Departure Patient Disposition: Home Clinical Impression: Cervical radiculopathy Instructions: DI for Cervical Radiculopathy Activity Restrictions/Additional Instructions: It is important that you follow-up with your primary care doctor and also your L and I provider to discuss further evaluation and treatment. Use the medications as needed and as directed. Prescriptions: New hydrocodone-acetaminophen 5-325 mg tablet 1 tab PO Q4-6H PRN (Reason: pain) Qty: 10 0RF cyclobenzaprine 10 mg tablet 10 mg PO TID PRN (Reason: muscle spasm) Qty: 21 0RF methylprednisolone [Medrol (Renaldo)] 4 mg tablets,dose pack See Rx Instructions .ROUTE .COMPLEX Qty: 21 0RF Rx Instructions: orally per package directions No Action lamotrigine 25 mg tablet See Rx Instructions PO .COMPLEX Qty: 60 2RF Dose Instruction: 25 mg q hs x 2 weeks then 25 mg po BID PO ; Rx Instructions: 25 mg q hs x 2 weeks then 25 mg po BID PO ; dextroamphetamine-amphetamine 20 mg tablet 1 tab PO DAILY sertraline [Zoloft] 100 mg tablet 100 mg PO DAILY Qty: 30 3RF ranitidine HCl 300 mg tablet 300 mg PO BEDTIME Qty: 30 0RF dexamethasone 1.5 mg (21 tabs) tablets,dose pack See Rx Instructions .ROUTE .COMPLEX Qty: 21 0RF Rx Instructions: Take 6 tablets p.o. x1 day, then 5 tablets p.o. x1 day, then 4 tablets p.o. x1 day, then 3 tablets p.o. x1 day, then 2 tablets p.o. x1 day, then 1 tablet p.o. x1 day meloxicam 7.5 mg tablet 7.5 mg PO BID PRN (Reason: pain) Qty: 10 0RF Referrals: Nicki Dove MD [Primary Care Provider] - Stand Alone Forms: Patient Portal/API
[2023-09-06] MEDS: predniSONE 20 MG TABLET PO (21:50)
[2023-09-06] MEDS: HYDROMORPHONE 1 MG INJ IM (21:50)
[2023-09-06] MEDS: KETOROLAC 30 MG/ML VIAL IM (21:50)
[2023-09-06] MEDS: CYCLOBENZAPRINE 10 MG TABLET PO (22:44)
[2023-09-06 23:33] VITALS: BP 154/85; PULSE 114; RESP 16; O2SAT 98
[2023-09-06] MEDS: CYCLOBENZAPRINE 10 MG PREPACK 1 BOTTLE MISC (23:47)
[2023-09-06] MEDS: HYDROCODONE/ACET 5/325 PREPACK 1 BOTTLE MISC (23:47)
[2023-09-06 23:54] VITALS: PULSE 105
== END 2023-09-06 23:55 | disposition home or self-care (01) ==
PROVIDERS: Emergency Provider Emergency Medicine; PCP Family Medicine
DX: M54.12 Radiculopathy, cervical region (principal)
CPT/HCPCS: 96372; 99283; J1170; J1885

== ENCOUNTER → 2023-09-21 18:40 | Outpatient (CLI) | payer OTHER, SELFPAY ==
--- NOTE | 2023-09-21 | DI.MRI.S_ITS ---
PROCEDURE: MR THORACIC SPINE WO CON INDICATIONS: Radiculopathy, thoracic region TECHNIQUE: Noncontrast sagittal T1 spine echo and T2 fast spin echo, sagittal STIR, and T2 fast spin echo through the thoracic spine. COMPARISON: [facility], MR, MR CERVICAL SPINE WO/W CON, 08/08/2023, 16:11. [facility], CR, XR CHEST 1V, 08/08/2023, 14:36. FINDINGS: Image quality: Diagnostic, with note made of motion artifact. Alignment and Curvature: There is minimal dextroconvex thoracic scoliotic curvature. No focal AP alignment abnormality is seen. Bone Marrow: Marrow is of normal overall signal. No acute vertebral body compression fractures. Spinal Cord: Visualized spinal cord is normal in size and signal. Paraspinous Soft Tissues: No paravertebral masses. Miscellaneous: At the T7-T8 level, there is a mild central/left disc protrusion. Minimal central canal narrowing is seen. No neural foraminal narrowing is seen. At the T8-T9 level, there is a central disc protrusion seen, with minimal central canal narrowing and minimal mass effect upon the ventral spinal cord, as on series 7, image 34. No neural foraminal narrowing can be seen. Milder degenerative changes are seen elsewhere. IMPRESSION: Thoracic spine degenerative changes are seen, which are worst at the T8-T9 level. Dictated by: Slim Sarmiento M.D. on 09/22/2023 at 11:25 Approved by: Slim Sarmiento M.D. on 09/22/2023 at 11:27
== END ==
PROVIDERS: PCP Family Medicine; Referring Provider Student in an Organized Health Care Education/Training Program; Visit Provider Student in an Organized Health Care Education/Training Program
DX: M47.24 Other spondylosis with radiculopathy, thoracic region (principal); M51.14 Intervertebral disc disorders with radiculopathy, thoracic region
CPT/HCPCS: 72146